=== PATIENT | male | born 1955 | race Caucasian/White ===

== ENCOUNTER → 2019-08-13 | Outpatient (CLI) | payer SELFPAY ==
[~2019-08-13] MED LIST: HYDGUAL120 PO; LEVFLO500 PO; LEVSOD75; PRED20 PO; SYNTHROID175 MCG PO; THYR60
== END | disposition home or self-care (01) ==
LOC: LAB 10:55 → LAB SHORT 10:55
DX: H66.91 Otitis media, unspecified, right ear (principal)
CPT/HCPCS: 87070; 87205